=== PATIENT | male | born 1985 | race Caucasian/White ===

== ENCOUNTER 2023-07-26 06:30 | Emergency (ER) | payer OTHER, SELFPAY ==
--- NOTE | ~2023-07-26 | XR_ITS ---
EXAMINATION: XR HAND, LEFT CLINICAL INFORMATION: Thumb crush injury COMPARISON: None available. TECHNIQUE: PA, lateral, and oblique views of the left hand. FINDINGS: There is a nondisplaced tuft fracture of the first digit with surrounding soft tissue swelling. No additional fractures are identified. Alignment is anatomic. Joint spaces are maintained. No erosions or soft tissue calcifications. XR/XR hand LT min 3V IMPRESSION: Nondisplaced tuft fracture of the first digit.
[2023-07-26 06:34] VITALS: BMI 34.2
--- NOTE | 2023-07-26 07:03 | ED_ITS ---
<Statement entered by Amilcar Hoskins MD - 07/26/23 18:57> Patient seen with the physician collections assistant decisions made with the physician collections assistant. Patient has significant nail bed injury that was loosely closed. He is placed on antibiotics as he has a tuft fracture. HPI - Wound/Laceration General Chief Complaint: Wound/Laceration Stated Complaint: Finger Lac/Work Inj Time Seen by Provider: 07/26/23 06:45 Source: patient Mode of arrival: ambulatory Limitations: no limitations History of Present Illness HPI narrative: 38 year old male presents w/ trauma to L thumb and nail that happened [employer]. Patient reports he was using a power tool ( portable pneumatic hand tool) and his finger got caught between it. A nail type thing went through his finger and injured his nail bed. He states my nail is basically off . UTD on tetanus. No numbness or tingling Related Data Previous Rx's Medication Instructions Recorded cephalexin 500 mg tablet 500 mg PO Q6H 10 days #40 tabs 07/26/23 doxycycline hyclate 100 mg capsule 100 mg PO BID 10 days #20 caps 07/26/23 Allergies Allergy/AdvReac Type Severity Reaction Status Date / Time amoxicillin [AMOXICILLIN] Allergy Unknown UNKNOWN Verified 07/26/23 07:09 Review of Systems Review of Systems: Constitutional : No Fever, No Chills, Cardiovascular : No Chest Pain, No SOB Respiratory : No Dyspnea Gastrointestinal : No abdominal pain Musculoskeletal : No Joint Swelling Skin : No rash, positive skin laceration Neuro : No Weakness, No Numbness Psych : No SI/HI Yes all other systems are reviewed and are negative PMFSH Past Medical History Attestation statement: The following information was validated with the patient. Source: old records reviewed and nursing notes reviewed Onset Date is defined in the Problem List Problems that require an onset date and time if occurred within 24 hrs of arr ival to the ED Aortic Dissection and Rupture; Neurologic impairment; Cardiopulmonary Arrest; Endotracheal Intubation; Insertion or Replacement of Mechanical Circulatory Assi st Device Social History Social History Smoked in Last 30 Days: No Use of substances other than those prescribed or required for medical reasons: No Advance Directives: No Physical Exam Vital Signs: Vital Signs: BMI result Body Mass Index 34.2 vss Appearance: Alert.? Oriented X3.? No acute distress.? Head: Normocephalic, atraumatic, no step-offs or deformities Eyes: Pupils equal, round and reactive to light.? Neck: Normal inspection.? Neck supple.? CVS: Normal heart rate and rhythm.? Pulses normal.? Respiratory: No respiratory distress.? Breath sounds normal.? Abdomen: Soft and nontender.? Skin: Skin warm and dry.? Normal skin color.? Normal skin turgor.? + left thumb/ nail avulsed nail hanging on by a small portion of skin, exposed nail bed w/o bleeding, + puncture wound through and through to the left thumb 2+ radial pulses. Sensation intact distally b/l Extremities: No lower extremity edema.? No calf ttp. 5/5 strength to bilateral upper and lower extremities Neuro: Oriented X 3.? No motor deficit.? No sensory deficit. CN 2-12 intact Course Reevaluation(s) Reevaluation #1: I did a digital block using lidocaine, patient is still in a lot of pain. Not tolerating repair. My attending Dr. Hoskins will go in to evaluate patient and repair Time: 08:02 Reevaluation #2: Bupivacaine was used for digital block w/ success. One suture 4-0 placed to fat pad of left 1st digit puncture wound. and two disolvable 5-[address] to nail bed. Xeroform dressing applied over nail. Bleeding well controlled. Dry dressing with finger splint placed. Patient to be discharged home with doxycycline and Keflex. Will give him hand follow-up. X-ray showing a fracture there is concerns for open fracture. Educated patient on diagnosis and treatment plan, answered all question, patient verbalizes understanding. At this time patient will be discharged home, advised to return with new or worsening symptoms. Educated on worrisome signs and symptoms and when to return. At this time I feel comfortable discharge home. Time: 09:34 Medications Administered Discontinued Medications Generic Name Dose Route Start Last Admin Trade Name Po PRN Reason Stop Dose Admin Bupivacaine HCl 10 ml 07/26/23 07:47 07/26/23 08:42 Bupivacaine Mpf 0.5 % 10 Ml Vial INFILTRATI 07/26/23 07:48 10 ml ONCE ONE Administration Cephalexin HCl 500 mg 07/26/23 09:36 07/26/23 09:45 Cephalexin 500 Mg Capsule PO 07/26/23 09:37 500 mg ONCE ONE Administration Doxycycline Monohydrate 100 mg 07/26/23 09:36 07/26/23 09:45 Doxycycline Monohydrate 100 Mg Capsule PO 07/26/23 09:37 100 mg ONCE ONE Administration Lidocaine HCl 5 ml 07/26/23 06:46 07/26/23 07:08 Lidocaine Hcl 1 % Mpf 5 Ml Vial EPIDURAL 07/26/23 06:47 5 ml ONCE ONE Administration Medical Decision Making Medical Decision Making MDM Narrative: 38-year-old male presents with crush injury to left thumb work-related injury Physical exam + left thumb/ nail avulsed nail hanging on by a small portion of skin, exposed nail bed w/o bleeding, + puncture wound through and through to the left thumb 2+ radial pulses. Sensation intact distally b/l History and physical exam concerning for crush injury with associated puncture wound and possible underlying fracture. No signs of neurovascular compromise or threat to limb Plan- repair Differential Diagnosis Differential Diagnoses: The differential diagnosis associated with the presentation includes History and physical exam concerning for crush injury with associated puncture wound and possible underlying fracture. No signs of neurovascular compromise or threat to limb Admission/Observation Consideration of admission/observation: Escalation of care including admission/observation considered Independent Interpretation I performed an independent interpretation of an: Plain X-Ray ( XR/XR hand LT min 3V IMPRESSION: Nondisplaced tuft fracture of the first digit.) Radiology Impression Discussion of test interpretation with radiology: I have reviewed the radiologist's reading. Prescription Management I considered prescription management with: Antibiotic Patient offered pain meds multiple times. Refusing here and for home. Critical Care Time Critical Care Time Critical Care Time: Yes Total Critical Care Time: 60 Attestation: I attest to this time spent taking care of the patient, obtaining history, physical, reviewing labs, imaging, speaking to my attending, speaking to specialist. Discharge Plan Discharge Clinical Impression: Nail avulsion, finger, Puncture wound, Open fracture Patient Disposition: Home, Self-Care Instructions: Laceration (ED), Finger Laceration (ED), Nail Avulsion (ED) Additional Instructions: Take your medications as prescribed. If you were prescribed antibiotics today, it is important that you take your medication to their entirety, do not skip any doses, do not finish them early. Follow-up with your primary care provider this week. Return to the emergency department with new or worsening symptoms. Such as fevers, chills, chest pain, shortness of breath, nausea, vomiting, dizziness, headache, vision changes, lethargy In case of emergency call 911 Please follow-up with orthopedics/hand as soon as possible. Call to schedule an appointment on Friday. Return if any signs of infection such as redness, swelling, draining from site, fevers, chills, numbness, tingling Keep dressing on finger for 48-72 hours. Prescriptions: New doxycycline hyclate 100 mg capsule 100 mg PO BID 10 Days Qty: 20 0RF cephalexin 500 mg tablet 500 mg PO Q6H 10 Days Qty: 40 0RF Referrals: [facility] [place]Provider Group] - 1 day Steph Delgado NP [Primary Care Provider] - 2 days Dora Trammell MD [Physician] - 1 day Stand Alone Forms: Work/School Release
[2023-07-26] MEDS: Lidocaine HCl 1 % MPF 5 ML VIAL EPIDURAL (07:08)
[2023-07-26] MEDS: BUPivacaine MPF 0.5 % 10 ML VIAL INFILTRATI (08:42)
[2023-07-26] MEDS: cephALEXin 500 MG CAPSULE PO (09:45)
[2023-07-26] MEDS: Doxycycline Monohydrate 100 MG CAPSULE PO (09:45)
== END 2023-07-26 10:05 | disposition home or self-care (01) ==
PROVIDERS: Emergency Provider Emergency Medicine; PCP Nurse Practitioner Family
DX: S62.502B Fracture of unspecified phalanx of left thumb, initial encounter for open fracture (principal); S61.112A Laceration without foreign body of left thumb with damage to nail, initial encounter; W23.0XXA Caught, crushed, jammed, or pinched between moving objects, initial encounter; Y93.9 Activity, unspecified; Y92.59 Other trade areas as the place of occurrence of the external cause; Y99.0 Civilian activity done for income or pay
CPT/HCPCS: 12001; 29130; 64450; 73130; 99284; J0665

== ENCOUNTER 2023-07-30 12:26 | Outpatient (AMB) | payer OTHER, SELFPAY ==
--- NOTE | 2023-07-30 12:27 | A.OFFVIS_ITS ---
Intake Vital Signs 07/30/23 12:28 Height 5 ft 8 in Weight 225 lb BMI 34.2 Intake Visit Reasons: FC-Nail avulsion, finger, Puncture wound, Open FX Intake Note: Gregory 38 year old male who is right hand dominant presents today for a new patient visit for his W/C injury of his Left thumb and nail. States on 07/26/23 he was using a power tool (portable pneumatic hand tool) and his finger got caught between it. A nail type thing went through his finger and injured his nail bed. Seen in ED where his finger was - and referred to orthopedics for fur ther evaluation. Currently states his pain is a 2/10. Allergies amoxicillin [AMOXICILLIN] Allergy (Unknown, Verified 07/30/23 12:29) UNKNOWN HPI FC-Nail avulsion, finger, Puncture wound, Open FX HPI Details Gregory is a 38 year old right hand dominant man who presents to discuss his left thumb injury, DOI: 07/26/23. This is a work related injury, done with a pneumatic power tool which managed to both crush the tip of the finger and also cause a penetrating injury to the tip of the finger He was seen in the ED same day. His nail plate was hanging by a small amount of tissue and was removed, the nailbed was sutured and splinted, and he was sent home with PO Abx. He says he is doing okay and his pain is tolerable. He denies pain in the wrist or other digits. FORMERLY [facility], [facility] Social History (Updated 07/30/23 @ 12:38 by JACK Knott) Patient Tobacco Use Status: Former Tobacco user Current occupational status: employed Current occupation: rt hand / sheet metal Review of Systems Const All systems reviewed & are unremarkable except as noted in HPI and below Physical Exam Vital Signs: BMI result Body Mass Index 34.2 Const General: cooperative, healthy appearing and no acute distress Orientation/consciousness: patient oriented x3 HEENT Head: Yes normocephalic and Yes atraumatic Eyes EOM: EOMs intact bilaterally Resp Effort & Inspection: normal respiratory effort and able to speak in complete sentences Cardio Jugular venous distension: no JVD Skin General skin exam: turgor normal Rashes: no rashes Neuro General: patient oriented x3 Extrem Other: Evaluation of Right Upper Extremity: The patient is alert, oriented, and in no acute distress Regarding the patient's left thumb, the nail plate has been removed. He had a nail bed injury that has been repaired using 2 absorbable sutures. There is also a penetrating wound in the pad of the thumb that is circular and about 3 mm in diameter. There is a single suture that has been placed that we removed in clinic today. Cap refill is brisk to the tip of the thumb, but sensation is diminished in both the radial digital and ulnar digital nerve distributions at the tip of the thumb, likely from the crush injury Us he has good active flexion and extension of the IP joint The IP joint is stable on exam and not particularly tender With his fingers he can make a fist and extend all of his digits. Radiographs: 3 views of the right hand, with attention to the thumb, from 07/26/23 were reviewed by me today in clinic. They show a comminuted minimally displaced fracture of the tuft of the distal phalanx of the left thumb. Psych Appearance: grossly normal Affect: normal affect Attitude: cooperative Office Procedures Fracture Care Details: [id number] distal phalanx fracture Fracture Billing Code: Fracture Billing Code Assessment & Plan Assessment & Plan (1) Open fracture of left thumb: Code(s): S62.502B - Fracture of unspecified phalanx of left thumb, initial encounter for open fracture (2) Injury of nail bed of left thumb: Code(s): S69.92XA - Unspecified injury of left wrist, hand and finger(s), initial encounter Plan Assessment & Plan: 1. Left thumb distal phalanx open tuft fracture, minimally displaced 2. Left thumb nailbed injury, S/P repair with absorbable sutures in the ED DOI: 07/26/23, crush & penetrating injruy from a powertool at work This is a work-related injury I educated him about this condition I discussed operative and non-operative treatment options I think we can manage this non-operatively He was given a thumb spica splint to be worn with daily activity out of the house for the next 4 weeks I discussed activity modification, he is to avoid any pinching, gripping, or lifting activities with his thumb for at least 4 weeks I explained the signs and symptoms of infection, if the patient develops any new or worsening erythema, drainage, pain, or warmth they should contact the clinic or attend the ED. 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 He would like to remain working at this time, and was given a note to return to work but he must keep his left thumb clean and with no pinching with his thumb He will follow up in 2 weeks for a wound & ROM check I recommend he follow up in 4-6 weeks post-operatively with radiographs to assess wound healing and for assure no osteomyelitis Scribed for Dora Trammell MD by Todd Sheikh, medical education manager, on 07/30/23 at 12:55 PM, EST. Coding Level of Care Code New Pt Level 3 (71618) Diagnoses Open fracture of left thumb S62.502B Injury of nail bed of left thumb S69.92XA CPT Codes Fracture Care - Fracture Billing Code: Fracture Billing Code ([id number])
[2023-07-30 12:28] VITALS: BMI 34.2
== END 2023-07-30 13:28 | disposition home or self-care (01) ==
PROVIDERS: PCP Nurse Practitioner Family; Visit Provider Orthopaedic Surgery
DX: S62.522B Displaced fracture of distal phalanx of left thumb, initial encounter for open fracture (principal); S69.92XA Unspecified injury of left wrist, hand and finger(s), initial encounter
CPT/HCPCS: 26750; 99203

== ENCOUNTER → 2023-07-30 12:26 | Outpatient (BNVA) | payer OTHER, SELFPAY | PROVIDERS: PCP Nurse Practitioner Family; Visit Provider Orthopaedic Surgery | DX: S62.502B Fracture of unspecified phalanx of left thumb, initial encounter for open fracture (principal); S69.92XA Unspecified injury of left wrist, hand and finger(s), initial encounter | CPT/HCPCS: 26750; 99202 ==

== ENCOUNTER 2023-08-14 09:55 | Outpatient (AMB) | payer OTHER, SELFPAY ==
--- NOTE | 2023-08-14 10:31 | MHC.OFFVIS ---
Intake Intake Visit Reasons: OV - left thumb fx, DOI 07/26/23 Intake Note: Gregory is a 38 year old male who presets today for a follow up for his left thumb fx, DOI 07/26/23. Patient reports still having numbness and tingling. However notices his pain is getting better since the last visit. Allergies amoxicillin [AMOXICILLIN] Allergy (Unknown, Verified 08/14/23 10:33) UNKNOWN HPI OV - left thumb fx, DOI 07/26/23 HPI Details 38-year-old right hand dominant male who presents in the office today for a follow up of left thumb distal phalanx open tuft fracture with nail bed injury, which occurred on 07/26/2023 after he crushed the tip of his finger with a power tool. He was last seen in the office by Dr. Trammell on 07/30/2023. He states the thumb is feeling better. He reports some numbness and tingling. He does report the tingling is better now then it was. He states work has not been working with him but he states he has not been doing any pinching motion. This is a work related injury. FORMERLY [facility] Social History Patient Tobacco Use Status: Former Tobacco user Current occupational status: employed Current occupation: rt hand / sheet metal Review of Systems Const All systems reviewed & are unremarkable except as noted in HPI and below Physical Exam Const General: cooperative, healthy appearing and no acute distress Resp Effort & Inspection: normal respiratory effort and able to speak in complete sentences Cardio Rate: regular rate Peripheral pulses: Peripheral pulses 2+ throughout GI Palpation (GI): Soft to palpation Skin Lesions: no lesions Rashes: no rashes Extrem Other: Left thumb: Nail plate has been removed. No erythema or drainage. No signs of infection. Small wound on thumb pad. No erythema or drainage at the thumb pad. No signs of infection. Full ROM at the IP and CMC joint. Tingling along the radial and ulnar nerve distrabution. Assessment & Plan Assessment & Plan (1) Open fracture of left thumb: Code(s): S62.502B - Fracture of unspecified phalanx of left thumb, initial encounter for open fracture (2) Injury of nail bed of left thumb: Code(s): S69.92XA - Unspecified injury of left wrist, hand and finger(s), initial encounter Plan Mr. Pedro is a 38-year-old right hand dominant male who presents in the office today for a follow up of left thumb distal phalanx open tuft fracture with nail bed injury, which occurred on 07/26/2023 after he crushed the tip of his finger with a power tool. He was last seen in the office by Dr. Trammell on 07/30/2023. He states the thumb is feeling better. He reports some numbness and tingling. He does report the tingling is better now then it was. He states work has not been working with him but he states he has not been doing any pinching motion. This is a work related injury. The patient was instructed he no long has to continue to wrap the left thumb. He was encourage to keep the finger clean. He was educated on signs of infection, which are as follows but not limited to erythema, edema, drainage, or warmth. If he is to experience any of these symptoms he is to contact the office immediately or present to the ED. He should also call the office should he have issues with ROM. He was instructed to avoid the pinching motion for an additional 4 weeks and then he may return to normal activities as tolerated. Follow up will be PRN, or sooner if needed. X-rays of the left hand which were obtained while in the office today and were reviewed by me, Salma Miller PA-C, revealed routine healing of a left thumb distal phalanx open tuft fracture. Orders: Orders XR hand LT min 3V Today M79.643 - Pain in unspecified hand Patient Instructions: Scribed for Salma Miller PA-C by Kavitha Irwin medical assistant prn, on 08/14/2023 at 10:02 am, EST. Coding Level of Care Code Global (89597) Diagnoses Open fracture of left thumb S62.502B Injury of nail bed of left thumb S69.92XA
== END 2023-08-14 10:38 | disposition home or self-care (01) ==
PROVIDERS: PCP Nurse Practitioner Family; Visit Provider Physician Assistant
DX: S62.502B Fracture of unspecified phalanx of left thumb, initial encounter for open fracture (principal); S69.92XA Unspecified injury of left wrist, hand and finger(s), initial encounter
CPT/HCPCS: 99024

== ENCOUNTER 2023-08-14 10:04 | Outpatient (REF) | payer OTHER, SELFPAY ==
--- NOTE | ~2023-08-14 | XR_ITS ---
EXAMINATION: XR HAND, LEFT CLINICAL INFORMATION: Pain. COMPARISON: Radiographs dated 07/26/2023. TECHNIQUE: PA, lateral, and oblique views of the left hand. FINDINGS: A comminuted, mildly displaced fracture is seen of the tuft of the distal phalanx of the left thumb. No dislocation is seen. No unusual degenerative change is seen. The proximal and distal carpal rows are intact. There is no focal bone erosion. No soft tissue gas or foreign body is seen. XR/XR hand LT min 3V IMPRESSION: Findings are consistent with a comminuted, mildly displaced fracture of the tuft of the distal phalanx of the left thumb.
== END 2023-08-14 10:05 | disposition home or self-care (01) ==
LOC: HO.HOSX 10:04
PROVIDERS: Visit Provider Physician Assistant
DX: S62.502B Fracture of unspecified phalanx of left thumb, initial encounter for open fracture (principal); S69.92XD Unspecified injury of left wrist, hand and finger(s), subsequent encounter
CPT/HCPCS: 73130; 99212